=== PATIENT | female | born 1975 | race Two or more races ===

== ENCOUNTER 2024-05-31 15:04 | Emergency (ER) | payer OTHER ==
[~2024-05-31] VITALS: Ht 167.6 cm; Wt 119.1 kg
[2024-05-31] MEDS: methylPREDNISolone SOD SUCC 125 MG/2 ML VL IM ONE (15:58)
[2024-05-31] MEDS ORDERED: CEPH500C PO (16:00)
[2024-05-31] MEDS ORDERED: TRIA0.02 TOP (16:00)
[2024-05-31] MEDS: KETOROLAC TROMETH 60MG/2ML VIAL IM ONE (16:00)
[2024-05-31 16:10] VITALS: BP 154/93; PULSE 112; RESP 10; TEMP 99; O2SAT 95
== END 2024-05-31 16:13 | disposition home or self-care (01) ==
LOC: ER 15:04
DX: S60.462A Insect bite (nonvenomous) of right middle finger, initial encounter (principal); T78.40XA Allergy, unspecified, initial encounter; Z88.0 Allergy status to penicillin; Z88.2 Allergy status to sulfonamides; W57.XXXA Bitten or stung by nonvenomous insect and other nonvenomous arthropods, initial encounter; Y93.89 Activity, other specified; Y92.89 Other specified places as the place of occurrence of the external cause; Y99.8 Other external cause status
CPT/HCPCS: 96372; 99284; J1885; J2919